=== PATIENT | male | born 1970 | race Caucasian/White ===

== ENCOUNTER 2018-03-23 18:57 | Emergency (ER) | payer MEDICAID ==
[~2018-03-23] VITALS: Ht 167.6 cm; Wt 64.4 kg
[2018-03-23 19:21] VITALS: BP 124/77
[2018-03-23] MEDS ORDERED: DIAZEPAM 5 MG TABLET PO ONE (19:30)
[2018-03-23] MEDS ORDERED: KETOROLAC 30 MG/1 ML IM ONE (19:30)
[2018-03-23] MEDS ORDERED: KETOROLAC 30 MG/1 ML ONE (19:46)
[2018-03-23] MEDS ORDERED: DIAZEPAM 5 MG TABLET ONE (19:47)
[2018-03-23 19:54] LABS: BASOPHILS # (AUTO) 0.01 x10^3/uL (0-0.1); BASOPHILS % (AUTO) 0 % (0-1); EOSINOPHILS # (AUTO) 0.02 x10^3/uL (0-0.4); EOSINOPHILS % (AUTO) 0 % (1-7); LYMPHOCYTES # (AUTO) 1.17 x10^3/uL (1-3.4); LYMPHOCYTES % (AUTO) 8 % (22-44); MD NO; MEAN CORPUSCULAR HEMOGLOBIN 28.7 pg (27.5-34.5); MEAN CORPUSCULAR HGB CONC 33.5 g/dL (33.2-36.2); MEAN CORPUSCULAR VOLUME 85.6 fL (81-97); MEAN PLATELET VOLUME 8.4 fL (7.4-10.4); MONOCYTES # (AUTO) 0.76 x10^3/uL (0.2-0.8); MONOCYTES % (AUTO) 5 % (2-9); NEUTROPHILS % (AUTO) 86 % (42-75); PLATELET COUNT 331 x10^3/uL (130-400); RED BLOOD COUNT 4.83 x10^6/uL (4.38-5.82); RED CELL DISTRIBUTION WIDTH 14.8 % (9.4-14.8)
[2018-03-23 20:02] LABS: ALBUMIN 3.5 g/dL (3.4-5.0); ANION GAP 9 mmol/L (5-15); CALCIUM 8.6 mg/dL (8.5-10.1); CHLORIDE 102 mmol/L (98-107); CREATININE 0.98 mg/dL (0.7-1.3)
[2018-03-23 20:06] LABS: TROPONIN I < 0.015 ng/mL (0.000-0.045)
== END 2018-03-23 20:33 | disposition home or self-care (01) ==
LOC: ED 19:31
DX: S29.012A Strain of muscle and tendon of back wall of thorax, initial encounter (principal); J45.909 Unspecified asthma, uncomplicated; R07.89 Other chest pain; X58.XXXA Exposure to other specified factors, initial encounter; Y93.89 Activity, other specified; Y92.89 Other specified places as the place of occurrence of the external cause; Y99.8 Other external cause status
CPT/HCPCS: 36415; 71045; 80048; 82040; 84484; 85025; 93005; 96372; 99285; J1885

== ENCOUNTER 2018-03-28 06:41 | Emergency (ER) | payer MEDICAID ==
[2018-03-28 06:42] VITALS: BP 120/66
[2018-03-28] MEDS ORDERED: KETOROLAC 30 MG/1 ML ONE (07:21)
[2018-03-28] MEDS ORDERED: ALBUTEROL/IPRATROPIUM 2.5MG/0.5MG, 3 ML NPPB ONE (07:30)
[2018-03-28] MEDS ORDERED: KETOROLAC 30 MG/1 ML IM ONE (07:30)
[2018-03-28] MEDS ORDERED: METHOCARBAMOL 500 MG TABLET PO ONE (07:30)
[2018-03-28] MEDS ORDERED: ALBUTEROL/IPRATROPIUM 2.5MG/0.5MG, 3 ML ONE (07:36)
[2018-04-04] MEDS ORDERED: IBUP200T49 PO (13:21)
[2018-04-04] MEDS ORDERED: METH750T87 PO (13:21)
[2018-04-04] MEDS ORDERED: ALBU18HF INH (13:21)
[2018-04-05] MEDS ORDERED: MORP4VIA IVPush (17:15)
[2018-04-05] MEDS ORDERED: PIPE4.5V3 IV (17:15)
[2018-04-05] MEDS ORDERED: Vancomycin Per Pharmacy MC (17:15)
[2018-04-05] MEDS ORDERED: OXYC5TAB3 PO (17:15)
[2018-04-05] MEDS ORDERED: IPRA3AMP30 NPPB (17:15)
[2018-04-05] MEDS ORDERED: LIDO700A20 TD (17:15)
[2018-04-05] MEDS ORDERED: ACET325T14 PO (17:15)
[2018-04-05] MEDS ORDERED: NICO-487 TD (17:15)
== END 2018-03-28 09:22 | disposition home or self-care (01) ==
LOC: ED 08:46
DX: S43.101A Unspecified dislocation of right acromioclavicular joint, initial encounter (principal); S46.011A Strain of muscle(s) and tendon(s) of the rotator cuff of right shoulder, initial encounter; S10.93XA Contusion of unspecified part of neck, initial encounter; S20.211A Contusion of right front wall of thorax, initial encounter; J45.909 Unspecified asthma, uncomplicated; F17.200 Nicotine dependence, unspecified, uncomplicated; Z76.0 Encounter for issue of repeat prescription; Y04.0XXA Assault by unarmed brawl or fight, initial encounter; Y93.89 Activity, other specified; Y92.89 Other specified places as the place of occurrence of the external cause; Y99.8 Other external cause status
CPT/HCPCS: 71046; 73030; 94640; 96372; 99284; 99406; J1885; J7620

== ENCOUNTER 2018-07-08 09:49 | Emergency (ER) | payer MEDICAID ==
[~2018-07-08] VITALS: Ht 167.6 cm; Wt 62.9 kg
[~2018-07-08 09:49] MED LIST: ACET325T14 PO; ALBU18HF INH; IBUP200T49 PO; IPRA3AMP30 NPPB; LIDO700A20 TD; METH750T87 PO; MORP4VIA IVPush; NICO-487 TD; OXYC5TAB3 PO; PIPE4.5V3 IV; Vancomycin Per Pharmacy MC
[2018-07-08 11:02] VITALS: BP 113/74
[2018-07-08 11:29] LABS: MICROSCOPIC INDICATED
[2018-07-08 11:52] LABS: BASOPHILS # (AUTO) 0.02 x10^3/uL (0-0.1); BASOPHILS % (AUTO) 0 % (0-1); EOSINOPHILS % (AUTO) 2 % (1-7); LYMPHOCYTES # (AUTO) 2.47 x10^3/uL (1-3.4); LYMPHOCYTES % (AUTO) 26 % (22-44); MD NO; MEAN CORPUSCULAR HEMOGLOBIN 27.1 pg (27.5-34.5); MEAN CORPUSCULAR HGB CONC 32.4 g/dL (33.2-36.2); MEAN CORPUSCULAR VOLUME 83.7 fL (81-97); MEAN PLATELET VOLUME 8.4 fL (7.4-10.4); MONOCYTES % (AUTO) 7 % (2-9); NEUTROPHILS # (AUTO) 6.13 x10^3/uL (1.8-6.8); NEUTROPHILS % (AUTO) 64 % (42-75); PLATELET COUNT 347 x10^3/uL (130-400); RED BLOOD COUNT 5.58 x10^6/uL (4.38-5.82); RED CELL DISTRIBUTION WIDTH 15.5 % (9.4-14.8)
[2018-07-08 12:06] LABS: ALANINE AMINOTRANSFERASE 21 U/L (12-78); ALBUMIN 3.6 g/dL (3.4-5.0); ANION GAP 6 mmol/L (5-15); CALCIUM 8.7 mg/dL (8.5-10.1); CHLORIDE 111 mmol/L (98-107); CREATININE 0.75 mg/dL (0.7-1.3)
[2018-07-08 12:08] LABS: ALKALINE PHOSPHATASE 66 U/L (45-117); BILIRUBIN,TOTAL 0.3 mg/dL (0.2-1.0); TOTAL PROTEIN 7.3 g/dL (6.4-8.2)
[2018-07-08 12:10] LABS: CULTURE INDICATED? NO
[2018-07-08 12:33] LABS: CLOSTRIDIUM DIFFICILE ANTIGEN NEGATIVE; CLOSTRIDIUM DIFFICILE TOXIN NEGATIVE (Negative)
== END 2018-07-08 12:03 | disposition left against medical advice (07) ==
LOC: ED 11:45
DX: R11.2 Nausea with vomiting, unspecified (principal); R19.7 Diarrhea, unspecified; R42 Dizziness and giddiness; Z53.21 Procedure and treatment not carried out due to patient leaving prior to being seen by health care provider
CPT/HCPCS: 36415; 80053; 81001; 83605; 85025; 87324; 89055; 93005

== ENCOUNTER 2018-12-01 12:35 | Emergency (ER) | payer MEDICAID ==
[~2018-12-01] VITALS: Ht 167.6 cm; Wt 67.7 kg
--- NOTE | 2018-12-01 12:53 | NUR ---
PT TO ED FOR MASS TO LEFT NECK. PT STATES [place] LAST NIGHT. WOKE THIS AM TO VERY LARGE AND PAINFUL MASS. CONNECTED TO MONITORS. VSS. EDMD ASSESSMENT COMPLETE. AWAITING ORDERS.
[2018-12-01] MEDS ORDERED: OXYcodone/APAP 10/325MG TABLET ONE (12:56)
[2018-12-01] MEDS ORDERED: OXYcodone/APAP 10/325MG TABLET PO ONE (13:00)
[2018-12-01] MEDS ORDERED: SODIUM CHLORIDE FLUSH 10ML SYR IVF ONE (13:00)
[2018-12-01 13:30] LABS: MEAN CORPUSCULAR HEMOGLOBIN 28.1 pg (27.5-34.5); MEAN CORPUSCULAR HGB CONC 32.7 g/dL (33.2-36.2); MEAN CORPUSCULAR VOLUME 85.9 fL (81-97); MEAN PLATELET VOLUME 8.4 fL (7.4-10.4); PLATELET COUNT 337 x10^3/uL (130-400); RED BLOOD COUNT 5.29 x10^6/uL (4.38-5.82); RED CELL DISTRIBUTION WIDTH 14.6 % (9.4-14.8)
[2018-12-01] MEDS ORDERED: SODIUM CHLORIDE 0.9%, 500ML IVBOLUS ONE (13:30)
[2018-12-01 13:33] LABS: ALBUMIN 3.5 g/dL (3.4-5.0); ANION GAP 6 mmol/L (5-15); CALCIUM 8.6 mg/dL (8.5-10.1); CHLORIDE 108 mmol/L (98-107); CREATININE 0.74 mg/dL (0.7-1.3)
--- NOTE | 2018-12-01 13:33 | NUR ---
PT RESTING IN ROOM. IV ESTABLISHED AND LABS DRAWN. NO NEEDS AT THIS TIME. VSS. AWAITING CT.
[2018-12-01 13:35] LABS: INTERNATIONAL NORMALIZED RATIO 1.05 (0.93-1.1)
[2018-12-01 14:05] LABS: BASOPHILS # (AUTO) 0.07 x10^3/uL (0-0.1); BASOPHILS % (AUTO) 0 % (0-1); EOSINOPHILS # (AUTO) 0.13 x10^3/uL (0-0.4); EOSINOPHILS % (AUTO) 1 % (1-7); LYMPHOCYTES # (AUTO) 2.09 x10^3/uL (1-3.4); LYMPHOCYTES % (AUTO) 11 % (22-44); MD SCAN; MONOCYTES # (AUTO) 1.04 x10^3/uL (0.2-0.8); MONOCYTES % (AUTO) 6 % (2-9); NEUTROPHILS # (AUTO) 14.98 x10^3/uL (1.8-6.8); NEUTROPHILS % (AUTO) 82 % (42-75)
--- NOTE | 2018-12-01 14:05 | NUR ---
pt to ct.
[2018-12-01 14:21] VITALS: BP 123/80
--- NOTE | 2018-12-01 14:22 | NUR ---
PT BACK FROM CT AT THIS TIME AND IS RESTING IN BED. PT STATES PAIN IS RELIEVED AND HE IS FEELING MUCH BETTER. VSS. NO NEEDS AT THIS TIME.
[2018-12-01 14:44] LABS: HEMOGLOBIN A1C 5.8 % (4.2-6.3)
[2018-12-01] MEDS ORDERED: OMNIPAQUE 350 MG/ML, 100ML BOTTLE ONE (14:46)
[2018-12-01] MEDS ORDERED: DEXAMETHASONE 4 MG/ML, 5ML ONE (14:51)
[2018-12-01] MEDS ORDERED: DEXAMETHASONE 4 MG/ML, 1ML IVPush ONE (15:00)
== END 2018-12-01 15:11 | disposition home or self-care (01) ==
LOC: ED 14:46
DX: L04.0 Acute lymphadenitis of face, head and neck (principal); L04.8 Acute lymphadenitis of other sites; Z72.9 Problem related to lifestyle, unspecified
CPT/HCPCS: 36415; 70491; 71045; 80048; 82040; 83036; 85025; 85610; 93005; 96374; 99284; J1100; J7040; Q9967

== ENCOUNTER 2018-12-12 12:08 | Emergency (ER) | payer MEDICAID ==
--- NOTE | 2018-12-12 12:23 | NUR ---
NO ANSWER IN LOBBY AT THIS TIME.
--- NOTE | 2018-12-12 12:42 | NUR ---
2ND CALL FOR TRIAGE, NO ANSWER.
--- NOTE | 2018-12-12 12:53 | NUR ---
3RD CALL FOR TRIAGE, NO ANSWER.
== END 2018-12-12 12:54 | disposition left against medical advice (07) ==
LOC: ED 12:48
DX: F10.129 Alcohol abuse with intoxication, unspecified (principal); Z53.21 Procedure and treatment not carried out due to patient leaving prior to being seen by health care provider

== ENCOUNTER 2018-12-13 06:50 | Emergency (ER) | payer MEDICAID ==
[~2018-12-13] VITALS: Ht 167.6 cm; Wt 97.7 kg
[2018-12-13 06:56] VITALS: BP 120/76
--- NOTE | 2018-12-13 07:04 | NUR ---
PT IN ROOM FROM LOBBY
--- NOTE | 2018-12-13 07:11 | NUR ---
PT GIVEN GOWN AND ASKED TO CHANGE
--- NOTE | 2018-12-13 07:20 | NUR ---
IN TO ASSESS PT. PT REFUSES TO CHANGE INTO GOWN. PT STATES "I'M JUST AGITATED. BUT I'LL BE OK. I'M HERE FOR DETOX. MY LAST DRINK WAS LAST NIGHT." NO ACUTE DISTRESS NOTED. PT EDUCATED REGARDING OUTSIDE RESOURCES WELL. PT SITTING ON CHAIR. REFUSES ASSESSMENT.
[2018-12-13] MEDS ORDERED: hydrOXYzine 50 MG/ML IM PRN (07:30)
--- NOTE | 2018-12-13 07:36 | NUR ---
PT RESTING ON GURNEY WITH HIS CLOSED. NO ACUTE DISTRESS NOTED. NO TREMORS NOTED.
--- NOTE | 2018-12-13 08:12 | NUR ---
Patient/Caregiver given discharge instructions and they have confirmed that they understand the instructions. Patient ambulatory with steady gait. no acute distress noted. pt left with all personal belongings. pt thankful for rx and resources.
== END 2018-12-13 08:14 | disposition home or self-care (01) ==
LOC: ED 07:50
DX: F15.20 Other stimulant dependence, uncomplicated (principal); F10.239 Alcohol dependence with withdrawal, unspecified; R45.1 Restlessness and agitation; J45.909 Unspecified asthma, uncomplicated; Z87.01 Personal history of pneumonia (recurrent); Z72.9 Problem related to lifestyle, unspecified; Y90.9 Presence of alcohol in blood, level not specified
CPT/HCPCS: 96372; 99283; J3410